=== PATIENT | male | born 1975 | race African-American/Black ===

== ENCOUNTER 2016-06-04 21:09 | Emergency (ER) | payer BC ==
[2016-06-05] MEDS ORDERED: PROMETHAZINE 25 MG/ML VIAL ONE (00:26)
[2016-06-05] MEDS ORDERED: SODIUM CHLORIDE 0.9% 2,000 ML ONE (00:26)
== END 2016-06-05 02:46 | disposition home or self-care (01) ==
LOC: ER 21:09
DX: E11.65 Type 2 diabetes mellitus with hyperglycemia (principal); G43.009 Migraine without aura, not intractable, without status migrainosus; Z91.14 Patient's other noncompliance with medication regimen
CPT/HCPCS: 36415; 80053; 81003; 82947; 83690; 85025; 96361; 96365